=== PATIENT | female | born 1965 | race Caucasian/White ===

== ENCOUNTER → 2018-04-19 08:43 | Outpatient (CLI) | payer OTHER, SELFPAY ==
--- NOTE | 2018-04-19 | DI.MG.S_ITS ---
BILATERAL DIGITAL DIAGNOSTIC MAMMOGRAM 3D/2D: 04/19/2018 CLINICAL: Bilateral breast pain. Comparison is made to exams dated: 06/09/2016 mammogram, 06/04/2016 mammogram, and 12/07/2014 mammogram - [facility]. There are scattered fibroglandular elements in both breasts. No significant masses, calcifications, or other findings are seen in either breast. Left breast post biopsy marker. IMPRESSION: NEGATIVE There is no abnormality seen in either breast to correspond with the pain, however, clinical followup is recommended. There is no mammographic evidence of malignancy. A 1 year screening mammogram is recommended. This exam was interpreted at Station ID: [id number]. NOTE: For mammograms, a report in lay terms will be sent to the patient. Approximately 15% of breast malignancies will not be visualized mammographically. In the management of a palpable breast mass, a negative mammogram must not discourage biopsy of a clinically suspicious lesion. Electronically Signed By: Gerhard Botello M.D. cj/:04/19/2018 15:00:14 copy to: Daria Pinto letter sent: Clinical Evaluation ACR BI-RADS Category 1: Negative [id number]
== END ==
PROVIDERS: Visit Provider Physician Assistant Medical
DX: N64.4 Mastodynia (principal)
CPT/HCPCS: 77066; G0279

== ENCOUNTER 2018-06-23 11:54 | Emergency (ER) | payer OTHER, SELFPAY ==
[2018-06-23 12:00] VITALS: BP 123/73; PULSE 89; RESP 14; TEMP 36.7; O2SAT 99
--- NOTE | 2018-06-23 12:02 | DI.RAD.S_ITS ---
PROCEDURE: XR HAND RT MIN 3V INDICATIONS: glf, proximal 5th digit pain/swelling TECHNIQUE: 3 views of the hand(s) acquired. COMPARISON: None. FINDINGS: Bones: No fractures or dislocations but there is mild soft tissue swelling over the proximal fifth metacarpal bone, potentially an indicator of an fracture. Carpal bones are normally aligned. No suspicious bony lesions. Soft tissues: No suspicious soft tissue calcifications. IMPRESSION: Soft tissue swelling proximal fifth metacarpal bone, and is unusual symptoms persist followup by a 5 day delayed set of plain films may be warranted to assess for currently hidden fracture. Dictated by: Wilver Xiao M.D. on 06/23/2018 at 12:45 Approved by: Wilver Xiao M.D. on 06/23/2018 at 12:47
--- NOTE | 2018-06-23 12:03 | DI.RAD.S_ITS ---
PROCEDURE: XR FACIAL BONES MIN 3V INDICATIONS: glf, rt side face/jaw pain/swelling TECHNIQUE: 3 views of the facial bones were acquired. COMPARISON: None. FINDINGS: Sinuses: Visualized sinuses demonstrate no air-fluid levels or mucosal thickening. Bones: No fractures. No suspicious bony lesions. Orbital rims and zygomatic arches appear intact. Soft tissues: No suspicious soft tissue densities. IMPRESSION: No trauma found. Please note that CT scanning is more accurate for detection of facial fractures. Dictated by: Wilver Xiao M.D. on 06/23/2018 at 12:47 Approved by: Wilver Xiao M.D. on 06/23/2018 at 12:48
--- NOTE | 2018-06-23 13:15 | ED_ITS ---
HPI - Extremity Injury (Upper) General Chief Complaint: Extremity Injury, Upper Stated Complaint: FALL Time Seen by Provider: 06/23/18 12:11 Source: patient Mode of arrival: ambulatory Limitations: no limitations History of Present Illness HPI narrative: 53-year-old female here for complaint of pain into her right side of her face and also to her right hand status post ground level fall. Earlier this morning she states that she stumbled and caused ground level fall on the sidewalk on her way into a walking to work. She denies any loss of consciousness. No nausea or vomiting. She states she has an abrasion to her right hand that she already has cleansed. She has pain into her right cheek area of her face where she hit. She denies any other injuries at this time. She is ambulatory into the emergency room. She states that her last tetanus was approximately 2 years ago. complaint: injury to: right and hand Related Data Allergies Allergy/AdvReac Type Severity Reaction Status Date / Time No Known Drug Allergies Allergy Verified 06/23/18 12:07 Review of Systems Constitutional Denies chills, Denies fever(s), Denies lethargy and Denies weakness Eyes Denies change in vision, Denies eye discharge, Denies irritation and Denies loss of vision ENT Comments: Facial pain Cardiovascular Denies chest pain, Denies irregular heart rhythm, Denies lightheadedness, Denies palpitations, Denies dyspnea, Denies dyspnea on exertion and Denies orthopnea Respiratory Denies cough, Denies dyspnea, Denies dyspnea on exertion and Denies wheezing Gastrointestinal Gastrointestinal: Denies abdominal pain, Denies change in bowel habits, Denies diarrhea, Denies nausea and Denies vomiting Genitourinary Denies hematuria, Denies flank pain, Denies urinary incontinence and Denies urinary urgency Musculoskeletal Comments: Right hand pain Integumentary/Breasts Denies pruritus, Denies erythema, Denies rash and Denies wounds Neurologic Denies confusion, Denies loss of vision and Denies weakness Psychiatric Denies anxiety, Denies confusion, Denies depression, Denies homicidal ideation and Denies suicidal ideation Endocrine Denies palpitations Hematologic/Lymphatic Denies easy bruising Allergic/Immunologic Denies wheezing PFSH Medical History No pertinent past medical history (Acute) Exam Initial Vital Signs Initial Vital Signs: Vital Signs Temperature 98.0 F 06/23/18 12:00 Pulse Rate 89 06/23/18 12:00 Respiratory Rate 14 06/23/18 12:00 Blood Pressure 123/73 H 06/23/18 12:00 Pulse Oximetry 99 06/23/18 12:00 Const General: cooperative and well developed Nutritional Appearance: well nourished Orientation: alert, awake, oriented x3 and not confused [facility] Head: normocephalic, No Foster's sign, No laceration, No raccoon eyes, No scalp lesion and other (Slight swelling and ecchymosis to the right zygomatic area no step-offs no raccoon eyes no Foster signs) Mouth: oral mucosae normal, oropharynx normal and moist mucous membranes Teeth and gingiva: dentition normal Throat: posterior oropharynx normal Eyes General: appearance normal, both eyes and all related structures Eyelids: eyelids normal Conjunctivae: conjunctivae normal Sclera: sclerae normal Pupils: PERRL EOM: EOM intact bilaterally Neck Neck: normal visual inspection, trachea midline, No lymphadenopathy, No midline deformity and No JVD Lymphatic: No lymphedema Chest Chest: normal inspection of the chest Resp Effort & Inspection: normal respiratory effort, able to speak in complete sentences, no respiratory distress and no use of accessory muscles Auscultation: clear to auscultation bilaterally, no rales, no rhonchi and no wheezes Cardio Rate: regular rate Rhythm: regular rhythm Heart Sounds: no click, no gallops, no murmurs and no rubs Pulses: normal peripheral pulses Skin General: no rashes or lesions noted, No jaundice and No petechiae Neuro General: alert, oriented x3, gait normal and no focal motor deficits Speech: speech normal Extrem Other: Small abrasions to the right palmar area ulnar aspect distal sensation is intact. Distal pulses are intact. Full range of motion. Course Orders Ordered: ED Orders 06/23/18 12:02 XR hand RT min 3V Stat 06/23/18 12:03 XR facial bones min 3V Stat Vital Signs - 8 hr 06/23/18 13:26 Pulse Rate 81 Respiratory Rate 16 Blood Pressure [Left Arm] 124/84 H Pulse Oximetry 100 MDM - Extremity Injury (Upper) Imaging Data Facial bones: Radiologist's impression: PROCEDURE: XR FACIAL BONES MIN 3V INDICATIONS: glf, rt side face/jaw pain/swelling TECHNIQUE: 3 views of the facial bones were acquired. COMPARISON: None. FINDINGS: Sinuses: Visualized sinuses demonstrate no air-fluid levels or mucosal thickening. Bones: No fractures. No suspicious bony lesions. Orbital rims and zygomatic arches appear intact. Soft tissues: No suspicious soft tissue densities. IMPRESSION: No trauma found. Please note that CT scanning is more accurate for detection of facial fractures. Dictated by: Wilver Xiao M.D. on 06/23/2018 at 12:47 Approved by: Wilver Xiao M.D. on 06/23/2018 at 12:48 Right hand : Radiologist's impression: PROCEDURE: XR HAND RT MIN 3V INDICATIONS: glf, proximal 5th digit pain/swelling TECHNIQUE: 3 views of the hand(s) acquired. COMPARISON: None. FINDINGS: Bones: No fractures or dislocations but there is mild soft tissue swelling over the proximal fifth metacarpal bone, potentially an indicator of an fracture. Carpal bones are normally aligned. No suspicious bony lesions. Soft tissues: No suspicious soft tissue calcifications. IMPRESSION: Soft tissue swelling proximal fifth metacarpal bone, and is unusual symptoms persist followup by a 5 day delayed set of plain films may be warranted to assess for currently hidden fracture. Dictated by: Wilver Xiao M.D. on 06/23/2018 at 12:45 Approved by: Wilver Xiao M.D. on 06/23/2018 at 12:47 [facility] Narrative Medical decision making narrative: Abrasions to the right hand were cleansed with normal saline and dressed with bacitracin and a Band-Aid. Tetanus is reported as up-to-date. X-ray the right hand was obtained was negative for any acute findings. Facial x-rays were obtained was also negative for any acute findings. Signs and symptoms presents as abrasions to right hand contusion to the right face. Follow up with primary care provider next week for re- evaluation it if still painful to right hand recommend repeat films to rule out occult fracture. [id number] Tylenol or Motrin as needed for any discomfort. For any worsening symptoms return to the emergency room. Discharge Plan Departure Patient Disposition: Home, Self-Care Clinical Impression: Contusion of face, Abrasion of hand, right Discharge Date/Time: 06/23/18 13:32 Interventions: ED Discharge Assessment Last Done: 06/23/18 13:32 Instructions: DI for Contusion, DI for Abrasion Activity Restrictions/Additional Instructions: X-rays of the facial bones and also the right hand were negative for any acute findings. Injuries are contusion to the right face and abrasion to the right hand. Dress abrasion with bacitracin and dressing daily until healed. Use over -the-counter Tylenol or Motrin as needed for any discomfort. Follow up with primary care provider next week for re-evaluation if continued pain into the areas recommend repeat x-ray of right hand and CT did face to rule out occult fractures. For any worsening symptoms return to the emergency room. Referrals: [facility] [Provider Group]
[2018-06-23 13:26] VITALS: BP 124/84; PULSE 81; RESP 16; O2SAT 100
== END 2018-06-23 13:32 | disposition home or self-care (01) ==
PROVIDERS: Emergency Provider Nurse Practitioner Family
DX: S00.83XA Contusion of other part of head, initial encounter (principal); S60.511A Abrasion of right hand, initial encounter; W19.XXXA Unspecified fall, initial encounter
CPT/HCPCS: 70150; 73130; 99282; 99283

== ENCOUNTER 2018-09-30 10:03 | Emergency (ER) | payer OTHER, SELFPAY ==
[2018-09-30 10:07] VITALS: BP 134/78; PULSE 80; RESP 20; TEMP 37.2; O2SAT 97
[2018-09-30 11:54] VITALS: BP 115/59; PULSE 91; RESP 18; O2SAT 100
[2018-09-30 12:00] LABS: RBC Urine 1-5/HPF (0-5/HPF); WBC Urine 0-1/HPF (0-5/HPF)
[2018-09-30 12:01] LABS: Bacteria Urine Occasional (0-1); Culture Indicated Urine Cult Not Indicated
--- NOTE | 2018-09-30 12:07 | ED_ITS ---
HPI - Abdominal Pain <SERAFIN Badillo - Last Filed: 09/30/18 21:36> General Chief Complaint: Abdominal Pain Stated Complaint: PAIN, CRAMPING ABD/BACK/LEG AREA Time Seen by Provider: 09/30/18 11:41 Source: patient Mode of arrival: ambulatory Limitations: no limitations History of Present Illness HPI narrative: 53-year-old female with history of diverticulitis and is a nonsmoker here for complaint of pain to her left lower quadrant over the past couple of days. She states she has had chills during the same timeframe. She also reports she has been constipated over the past several days. Last bowel movement was yesterday and she states was firm and was dark. She denies any blood in her stool. Positive nausea. No vomiting. She has felt like she has had increased urinary frequency she denies any dysuria. She denies any trauma to the abdomen. She denies any stressors or relievers of her pain. Related Data Previous Rx's Medication Instructions Recorded ciprofloxacin HCl 500 mg PO BID #14 tab 09/30/18 hydrocodone-acetaminophen 1 tab PO Q4H PRN #12 tab 09/30/18 metronidazole 250 mg PO TID #21 tab 09/30/18 ondansetron 4 mg PO Q6-8H PRN #12 tab 09/30/18 Allergies Allergy/AdvReac Type Severity Reaction Status Date / Time No Known Drug Allergies Allergy Verified 06/23/18 12:07 Review of Systems <SERAFIN Badillo - Last Filed: 09/30/18 21:36> Constitutional Reports chills Eyes Denies change in vision, Denies eye discharge, Denies irritation and Denies loss of vision ENT Ears, Nose, Mouth, and Throat: Denies change in voice, Denies neck pain and Denies sore throat Cardiovascular Denies chest pain, Denies irregular heart rhythm, Denies lightheadedness, Denies palpitations, Denies dyspnea, Denies dyspnea on exertion and Denies orthopnea Respiratory Denies cough, Denies dyspnea, Denies dyspnea on exertion and Denies wheezing Gastrointestinal Gastrointestinal: Reports abdominal pain and Reports constipation Genitourinary Denies hematuria, Reports urinary frequency, Denies flank pain, Denies urinary incontinence and Denies urinary urgency Comments: Urinary frequency Musculoskeletal Denies neck pain Integumentary/Breasts Denies pruritus, Denies erythema, Denies rash and Denies wounds Neurologic Denies confusion and Denies loss of vision Psychiatric Denies anxiety, Denies confusion, Denies depression, Denies homicidal ideation and Denies suicidal ideation Endocrine Denies palpitations Hematologic/Lymphatic Denies easy bruising Allergic/Immunologic Denies wheezing Exam <SERAFIN Badillo - Last Filed: 09/30/18 21:36> Initial Vital Signs Initial Vital Signs: Vital Signs Temperature 99.0 F 09/30/18 10:07 Pulse Rate 80 09/30/18 10:07 Respiratory Rate 20 09/30/18 10:07 Blood Pressure 134/78 09/30/18 10:07 Pulse Oximetry 97 09/30/18 10:07 Const General: cooperative and well developed Nutritional Appearance: well nourished Orientation: alert, awake, oriented x3 and not confused HENMT Mouth: oral mucosae normal and moist mucous membranes Eyes Conjunctivae: conjunctivae normal Sclera: sclerae normal Pupils: PERRL EOM: EOM intact bilaterally Resp Effort & Inspection: normal respiratory effort, able to speak in complete sentences, no respiratory distress and no use of accessory muscles Auscultation: clear to auscultation bilaterally, no rales, no rhonchi and no wheezes Cardio Rate: regular rate Rhythm: regular rhythm Heart Sounds: no click, no gallops, no murmurs and no rubs GI Inspection: non-distended Palpation: soft, no hepatosplenomegaly, No guarding, No pulsatile mass and tender (Tenderness left lower quadrant) Auscultation: normal bowel sounds General: No CVA tenderness Skin General: no rashes or lesions noted, No jaundice and No petechiae Neuro General: alert, oriented x3, gait normal and no focal motor deficits Speech: speech normal <Sakina Frankel DO - Last Filed: 10/01/18 11:33> Initial Vital Signs Initial Vital Signs: Vital Signs Temperature 99.0 F 09/30/18 10:07 Pulse Rate 80 09/30/18 10:07 Respiratory Rate 20 09/30/18 10:07 Blood Pressure 134/78 09/30/18 10:07 Pulse Oximetry 97 09/30/18 10:07 Course <SERAFIN Badillo - Last Filed: 09/30/18 21:36> Orders Ordered: Discontinued Medications Sodium Chloride (Normal Saline 0.9%) 1,000 mls @ 150 mls/hr IV CONT [place] Last Admin: 09/30/18 12:34 Dose: Sodium Chloride (Normal Saline 0.9%) 1,000 mls @ 1,000 mls/hr IV BOLUS ONE Stop: 09/30/18 13:17 Last Infusion: 09/30/18 13:35 Dose: 0 mls/hr Admin: 09/30/18 12:34 Dose: 1,000 mls/hr Vital Signs - 8 hr 09/30/18 14:00 Pulse Rate 94 H Respiratory Rate 22 Blood Pressure 132/80 Pulse Oximetry 100 <Sakina Frankel DO - Last Filed: 10/01/18 11:33> Orders Ordered: Discontinued Medications Sodium Chloride (Normal Saline 0.9%) 1,000 mls @ 150 mls/hr IV CONT [place] Last Admin: 09/30/18 12:34 Dose: Sodium Chloride (Normal Saline 0.9%) 1,000 mls @ 1,000 mls/hr IV BOLUS ONE Stop: 09/30/18 13:17 Last Infusion: 09/30/18 13:35 Dose: 0 mls/hr Admin: 09/30/18 12:34 Dose: 1,000 mls/hr Vital Signs - 8 hr 09/30/18 14:00 Pulse Rate 94 H Respiratory Rate 22 Blood Pressure 132/80 Pulse Oximetry 100 MDM - Abdominal Pain <SERAFIN Badillo - Last Filed: 09/30/18 21:36> Lab Data Result diagrams: 09/30/18 12:00 09/30/18 12:00 Lab Results 09/30/18 09/30/18 09/30/18 Range/Units 11:34 12:00 12:00 WBC 10.3 (4.5-11.0) X10^3/uL RBC 4.97 (4.0-5.2) X10^6/uL Hgb 14.2 (12.0-16.0) g/dL Hct 41.8 (36-46) % MCV 84.3 (80-100) fL MCH 28.6 (26-34) PG MCHC 33.9 (30-36) % RDW 13.4 (11.6-14.8) % Plt Count 323 (150-400) X10^3/uL Neut % (Auto) 76.8 H (50-75) % Lymph % (Auto) 15.7 L (25-40) % [place] % (Auto) 5.8 (3-14) % Eos % (Auto) 0.9 L (2-4) % Baso % (Auto) 0.8 (0-2) % Neut # (Auto) 7900 H (1057-8137) /uL Sodium 141 (137-145) mmol/L Potassium 4.0 (3.4-5.1) mmol/L Chloride 104 (98-107) mmol/L Carbon Dioxide 26 (22-32) mmol/L BUN 10 (7-17) mg/dL Creatinine 0.50 L (0.52-1.04) mg/dL Estimated GFR > 60.0 (>60) mL/min BUN/Creatinine Ratio 20.0 (6-22) Glucose 100 (70-100) mg/dL Calcium 8.6 (8.4-10.2) mg/dL Total Bilirubin 0.6 (0.2-1.3) mg/dL AST 24 (14-36) IU/L ALT 23 (9-52) IU/L Alkaline Phosphatase 85 (38-126) U/L Total Protein 7.3 (6.3-8.2) g/dL Albumin 4.1 (3.5-5.0) g/dL Globulin 3.2 (1.7-4.1) g/dL Albumin/Globulin Ratio 1.3 (1.0-2.8) Lipase 52 (23-300) U/L Urine RBC 1-5/hpf (0-5/HPF) Urine WBC 0-1/hpf (0-5/HPF) Urine Bacteria Occasional (0-1) (None) Ur Culture Indicated? Cult not indicated Micro UA Comment Not Reportable Point of care testing: Urine Dip Bedside Urine Glucose Negative Bedside Urine Bilirubin - Negative Bedside Urine Ketone - Negative Urine Specific [place] 1.015 Bedside Urine Occult Blood +/- Bedside Urine pH 6.0 Bedside Urine Protein - Negative Bedside Urine Urobilinogen - Negative Bedside Urine Nitrite - Negative Bedside Urine Leukocytes - Negative Esterase Imaging Data CT scan - abdomen: Radiologist's impression: [address] [id number] [address] Scan Report Signed Patient: Kandis MaciasDennis#: [id number] : 1965Acct:[id number] Age/Sex: 53 / FDate of Service: 09/30/18 Loc: ED Accession Number: [id number] Procedure: CT abdomen pelvis w con Ordering Provider: Marshall Louis PROCEDURE: CT ABDOMEN PELVIS W CON INDICATIONS: Left lower quadrant pain TECHNIQUE: After the administration of intravenous contrast, 5 mm thick sections acquired from the diaphragm to the symphysis. 5 mm coronal and sagittal reformats were acquired. For radiation dose reduction, the following was used: automated exposure control, adjustment of mA and/or kV according to patient size. COMPARISON: None. FINDINGS: Image quality: Excellent. ABDOMEN: Lung bases: Scattered nodular opacities are present within the left base at the edge of the hemidiaphragm, the largest measuring 5 mm. No priors are available for comparison. Solid organs: Liver is normal in size. Punctate low attenuation hepatic focus is noted in the anterior left lobe on series 2 image 18. Mild steatosis is present. Gallbladder has been. Biliary system is non dilated. Pancreas enhances normally. Spleen is normal in size and enhancement. No adrenal nodules. Kidneys demonstrate normal size and enhancement, without hydronephrosis. Peritoneum and bowel: Bowel loops are nonobstructed. There is moderate thickening with pericolonic inflammatory change and surrounding stranding fluid within the sigmoid colon. Numerous diverticula are identified. No free air is identified. Nodes and vessels: No retroperitoneal or mesenteric adenopathy by size criteria. Aorta and inferior vena cava are normal in size. Miscellaneous: No ventral hernias. PELVIS: Genitourinary: Bladder wall thickness is normal. Miscellaneous: No inguinal hernias or adenopathy. Bones: No suspicious bony lesions. No vertebral body compression fractures. IMPRESSION: 1. Sigmoid colonic thickening with inflammatory change and diverticula most consistent with colitis secondary to diverticulitis. Although no well-defined abscess is identified, there is minimal surrounding dependent fluid. Recommend interval followup to document resolution and exclude presence of underlying mass lesion. 2. Scattered subcentimeter areas of nodularity within the left base as above. There are nonspecific and no priors are available for comparison. Recommend interval followup low to document stability. Fleischner Society criteria for SOLID lung nodule followup. Nodule size (mm)Low-risk patientHigh-risk patient<6 (single or multiple)No routine followup.Optional CT at 12 months. 6-8 (single or multiple)CT at 6-12 months, then optional CT at 18-24 mo.CT at 6-12 months, then CT at 18-24 months. >8 (single) CT, PET-CT, or biopsy at 3 months. Same as for low-risk pts. >8 (multiple)CT at 3- 6 months, then optional CT at 18-24 mo.CT at 3-6 months, then CT at 18-24 months. Recommendations do not apply to lung cancer screening, patients with immunosuppression, or patients with known primary cancer. Dictated by: Sarah Sanon M.D. on 09/30/2018 at 13:30 Approved by: Sarah Sanon M.D. on 09/30/2018 at 13:33 MDM Narrative Medical decision making narrative: CBC shows elevated neutrophils otherwise unremarkable. Chem panel was unremarkable. Lipase was negative. Urinalysis was negative for urinary tract infection CT of the abdomen shows findings consistent with diverticulitis. She is placed on ciprofloxacin and metronidazole. Follow up with primary care provider in the next couple days for re-evaluation. She is prescribed [place] for pain and Zofran for nausea. For any worsening symptoms return emergency room. Slowly advance diet as tolerated. <Sakina Frankel, DO - Last Filed: 10/01/18 11:33> Lab Data Lab Results 09/30/18 09/30/18 09/30/18 Range/Units 11:34 12:00 12:00 WBC 10.3 (4.5-11.0) X10^3/uL RBC 4.97 (4.0-5.2) X10^6/uL Hgb 14.2 (12.0-16.0) g/dL Hct 41.8 (36-46) % MCV 84.3 (80-100) fL MCH 28.6 (26-34) PG MCHC 33.9 (30-36) % RDW 13.4 (11.6-14.8) % Plt Count 323 (150-400) X10^3/uL Neut % (Auto) 76.8 H (50-75) % Lymph % (Auto) 15.7 L (25-40) % [place] % (Auto) 5.8 (3-14) % Eos % (Auto) 0.9 L (2-4) % Baso % (Auto) 0.8 (0-2) % Neut # (Auto) 7900 H (7687-9411) /uL Sodium 141 (137-145) mmol/L Potassium 4.0 (3.4-5.1) mmol/L Chloride 104 (98-107) mmol/L Carbon Dioxide 26 (22-32) mmol/L BUN 10 (7-17) mg/dL Creatinine 0.50 L (0.52-1.04) mg/dL Estimated GFR > 60.0 (>60) mL/min BUN/Creatinine Ratio 20.0 (6-22) Glucose 100 (70-100) mg/dL Calcium 8.6 (8.4-10.2) mg/dL Total Bilirubin 0.6 (0.2-1.3) mg/dL AST 24 (14-36) IU/L ALT 23 (9-52) IU/L Alkaline Phosphatase 85 (38-126) U/L Total Protein 7.3 (6.3-8.2) g/dL Albumin 4.1 (3.5-5.0) g/dL Globulin 3.2 (1.7-4.1) g/dL Albumin/Globulin Ratio 1.3 (1.0-2.8) Lipase 52 (23-300) U/L Urine RBC 1-5/hpf (0-5/HPF) Urine WBC 0-1/hpf (0-5/HPF) Urine Bacteria Occasional (0-1) (None) Ur Culture Indicated? Cult not indicated Micro UA Comment Not Reportable Point of care testing: Urine Dip Bedside Urine Glucose Negative Bedside Urine Bilirubin - Negative Bedside Urine Ketone - Negative Urine Specific [place] 1.015 Bedside Urine Occult Blood +/- Bedside Urine pH 6.0 Bedside Urine Protein - Negative Bedside Urine Urobilinogen - Negative Bedside Urine Nitrite - Negative Bedside Urine Leukocytes - Negative Esterase Discharge Plan Departure Patient Disposition: Home Clinical Impression: Diverticulitis Discharge Date/Time: 09/30/18 14:06 Interventions: ED Discharge Assessment Last Done: 09/30/18 14:00 Instructions: Diverticulitis Activity Restrictions/Additional Instructions: Laboratory results today were unremarkable. Urinalysis negative for urinary tract infection. CT shows findings consistent with diverticulitis. Your placed on antibiotics use as directed. Use [place] as needed for discomfort. Zofran is also prescribed help with any nausea also use as directed. CT also shows some nodules to the base of her left long this will need to be looked at further and supervised to ensure stable. Follow up with your primary care provider the next few days for re-evaluation. If any worsening symptoms return to the emergency room. Slowly advance diet as tolerated. Prescriptions: New hydrocodone-acetaminophen 5-325 mg tablet 1 tab PO Q4H PRN (Reason: pain) Qty: 12 RF: 0 metronidazole 500 mg tablet 250 mg PO TID Qty: 21 RF: 0 ciprofloxacin HCl 500 mg tablet 500 mg PO BID Qty: 14 RF: 0 ondansetron 4 mg tablet,disintegrating 4 mg PO Q6-8H PRN (Reason: nausea and vomiting) Qty: 12 RF: 0 Stand Alone Forms: Work/School Restrictions <Sakina Frankel DO - Last Filed: 10/01/18 11:33> Cosign ED Attending Arturoature Attestation: I was immediately available in the department for consultation. Documentation has been reviewed. I agree with assessment and plan.
[2018-09-30 12:11] LABS: Add Manual Diff / Slide Review NO; Basophils Percent Auto 0.8 % (0-2); Eosinophils Percent Auto 0.9 % (2-4); Hematocrit 41.8 % (36-46); Hemoglobin 14.2 g/dL (12.0-16.0); Lymphocytes Percent Auto 15.7 % (25-40); Mean Corpuscular HGB Conc 33.9 % (30-36); Mean Corpuscular Hemoglobin 28.6 PG (26-34); Mean Corpuscular Volume 84.3 fL (80-100); Monocytes Percent Auto 5.8 % (3-14); Neutrophils Absolute Auto 7900 /uL (3000-5900); Neutrophils Percent Auto 76.8 % (50-75); Platelet Count 323 X10^3/uL (150-400); Red Blood Cell Count 4.97 X10^6/uL (4.0-5.2); Red Cell Distribution Width 13.4 % (11.6-14.8); White Blood Cell Count 10.3 X10^3/uL (4.5-11.0)
--- NOTE | 2018-09-30 12:18 | DI.CT.S_ITS ---
PROCEDURE: CT ABDOMEN PELVIS W CON INDICATIONS: Left lower quadrant pain TECHNIQUE: After the administration of intravenous contrast, 5 mm thick sections acquired from the diaphragm to the symphysis. 5 mm coronal and sagittal reformats were acquired. For radiation dose reduction, the following was used: automated exposure control, adjustment of mA and/or kV according to patient size. COMPARISON: None. FINDINGS: Image quality: Excellent. ABDOMEN: Lung bases: Scattered nodular opacities are present within the left base at the edge of the hemidiaphragm, the largest measuring 5 mm. No priors are available for comparison. Solid organs: Liver is normal in size. Punctate low attenuation hepatic focus is noted in the anterior left lobe on series 2 image 18. Mild steatosis is present. Gallbladder has been. Biliary system is non dilated. Pancreas enhances normally. Spleen is normal in size and enhancement. No adrenal nodules. Kidneys demonstrate normal size and enhancement, without hydronephrosis. Peritoneum and bowel: Bowel loops are nonobstructed. There is moderate thickening with pericolonic inflammatory change and surrounding stranding fluid within the sigmoid colon. Numerous diverticula are identified. No free air is identified. Nodes and vessels: No retroperitoneal or mesenteric adenopathy by size criteria. Aorta and inferior vena cava are normal in size. Miscellaneous: No ventral hernias. PELVIS: Genitourinary: Bladder wall thickness is normal. Miscellaneous: No inguinal hernias or adenopathy. Bones: No suspicious bony lesions. No vertebral body compression fractures. IMPRESSION: 1. Sigmoid colonic thickening with inflammatory change and diverticula most consistent with colitis secondary to diverticulitis. Although no well-defined abscess is identified, there is minimal surrounding dependent fluid. Recommend interval followup to document resolution and exclude presence of underlying mass lesion. 2. Scattered subcentimeter areas of nodularity within the left base as above. There are nonspecific and no priors are available for comparison. Recommend interval followup low to document stability. Fleischner Society criteria for SOLID lung nodule followup. Nodule size (mm)Low-risk patientHigh-risk patient<6 (single or multiple)No routine followup.Optional CT at 12 months. 6-8 (single or multiple)CT at 6-12 months, then optional CT at 18-24 mo.CT at 6-12 months, then CT at 18-24 months. >8 (single)CT, PET-CT, or biopsy at 3 months. Same as for low-risk pts. >8 (multiple)CT at 3-6 months, then optional CT at 18-24 mo.CT at 3-6 months, then CT at 18-24 months. Recommendations do not apply to lung cancer screening, patients with immunosuppression, or patients with known primary cancer. Dictated by: Sarah Sanon M.D. on 09/30/2018 at 13:30 Approved by: Sarah Sanon M.D. on 09/30/2018 at 13:33
[2018-09-30 12:32] LABS: Alanine Aminotransferase 23 IU/L (9-52); Albumin 4.1 g/dL (3.5-5.0); Albumin Globulin Ratio 1.3 (1.0-2.8); Alkaline Phosphatase 85 U/L (38-126); Aspartate Aminotransferase 24 IU/L (14-36); Bilirubin Total 0.6 mg/dL (0.2-1.3); Blood Urea Nitrogen 10 mg/dL (7-17); Calcium 8.6 mg/dL (8.4-10.2); Carbon Dioxide 26 mmol/L (22-32); Chloride 104 mmol/L (98-107); Estimated Glomerular Filt Rate > 60.0 mL/min (>60); Globulin 3.2 g/dL (1.7-4.1); Glucose 100 mg/dL (70-100); HEMOLYSIS 36 (0-50); Lipase 52 U/L (23-300); Sodium 141 mmol/L (137-145); Total Protein 7.3 g/dL (6.3-8.2)
[2018-09-30] MEDS: SODIUM CHLORIDE 0.9% 1,000 ML 1000 ML IV (12:34)
[2018-09-30 13:13] VITALS: BP 126/77; PULSE 106; RESP 18; O2SAT 100
[2018-09-30 14:00] VITALS: BP 132/80; PULSE 94; RESP 22; O2SAT 100
--- NOTE | 2018-10-02 15:27 | PC.NURSE ---
attempted f/u phone call, no answer.
== END 2018-09-30 14:06 | disposition home or self-care (01) ==
PROVIDERS: Emergency Medicine; Emergency Provider Nurse Practitioner Family
DX: K57.92 Diverticulitis of intestine, part unspecified, without perforation or abscess without bleeding (principal)
CPT/HCPCS: 36591; 74177; 80053; 81003; 81015; 83690; 85025; 96360; 99283; 99285

== ENCOUNTER → 2019-10-02 12:49 | Outpatient (CLI) | payer OTHER, SELFPAY | PROVIDERS: Visit Provider Nurse Practitioner | DX: R30.0 Dysuria (principal) | CPT/HCPCS: 87086; 87210 ==

== ENCOUNTER → 2021-12-24 15:03 | Outpatient (CLI) | payer OTHER, SELFPAY ==
--- NOTE | 2021-12-24 15:05 | DI.MG.S_ITS ---
BILATERAL DIGITAL SCREENING MAMMOGRAM 3D/2D WITH CAD: 12/24/2021 CLINICAL: Routine screening. Family history of breast cancer. Comparison is made to exams dated: 04/19/2018 mammogram - [facility], 06/09/2016 mammogram, 06/04/2016 mammogram - [facility], 05/21/2020 mammogram - outside location, and 12/07/2014 mammogram - [facility]. There are scattered fibroglandular elements in both breasts. Current study was also evaluated with a Computer Aided Detection (CAD) system. There is a biopsy clip in the left breast. No significant masses, calcifications, or other findings are seen in either breast. There has been no significant interval change. IMPRESSION: NEGATIVE There is no mammographic evidence of malignancy. A 1 year screening mammogram is recommended. This exam was interpreted at Station ID: [id number]. NOTE: For mammograms, a report in lay terms will be sent to the patient. Approximately 15% of breast malignancies will not be visualized mammographically. In the management of a palpable breast mass, a negative mammogram must not discourage biopsy of a clinically suspicious lesion. Electronically Signed By: Yunier ulloa/mac:12/25/2021 07:43:33 copy to: Daria Pinto letter sent: Normal Exam ACR BI-RADS Category 1: Negative [id number]
== END ==
PROVIDERS: PCP Family Medicine; Referring Provider Family Medicine; Visit Provider Family Medicine
DX: Z12.31 Encounter for screening mammogram for malignant neoplasm of breast (principal); Z80.3 Family history of malignant neoplasm of breast
CPT/HCPCS: 77063; 77067